=== PATIENT | female | born 1995 | race Caucasian/White ===

== ENCOUNTER → 2019-02-06 | Outpatient (REF) | payer SELFPAY | LOC: M LAB LCGH 12:05 | PROVIDERS: ATTEND Obstetrics & Gynecology | DX: Z12.4 Encounter for screening for malignant neoplasm of cervix (principal) ==

== ENCOUNTER → 2024-08-24 | Outpatient (REF) | payer OTHER | LOC: M SFHCWAGY 13:07 | PROVIDERS: ATTEND Obstetrics & Gynecology | DX: Z34.93 Encounter for supervision of normal pregnancy, unspecified, third trimester (principal); Z3A.36 36 weeks gestation of pregnancy ==

== ENCOUNTER 2024-09-15 07:34 | Inpatient (IN) | payer OTHER ==
[2024-09-15] VITALS (13 sets, daily range): BP systolic 88–123; BP diastolic 51–69
[~2024-09-15] VITALS: Ht 152.4 cm; Wt 65.7 kg
[2024-09-15] MEDS ORDERED: ANTA1CHW6 PO (09:23)
[2024-09-15] MEDS ORDERED: METHYLERGONOVINE MALEATE 0.2 MG/ML 1 ML VIAL IM PRN (09:45)
[2024-09-15] MEDS ORDERED: CARBOPROST TROMETHAMINE 250 MCG/ML AMP IM PRN (09:45)
[2024-09-15] MEDS ORDERED: LIDOCAINE 1% MDV 20 ML VIAL INFIL PRN (09:45)
[2024-09-15] MEDS ORDERED: TRANEXAMIC ACID INJection 1,000 MG in NS 100 ML IV PRN (09:45)
[2024-09-15 10:10] LABS: PLATELET COUNT, AUTOMATED 333 10^3/uL (150-450)
[2024-09-15] MEDS: miSOPROStol 50 MCG 1/2 TABLET PO SCH (10:27)
[2024-09-15 10:57] LABS: HIV 1&2 SCREEN NEGATIVE (NEGATIVE)
[2024-09-15 11:05] LABS: HEPATITIS C VIRUS ABY INDEX < 0.02 INDEX (<0.8)
[2024-09-15] MEDS: OXYTOCIN DRIP 30 UNITS in IV 1 EA IV SCH (20:42)
[2024-09-15] MEDS: LR 1,000 ML IV SCH (20:42)
[2024-09-16] VITALS (45 sets, daily range): BP systolic 82–181; BP diastolic 45–79; O2SAT 95
[2024-09-16] MEDS: LACTATED RINGER'S 1000 ML IV STA (01:49)
[2024-09-16] MEDS: ACETAMINOPHEN 325 MG TAB PO ONE (01:52)
[2024-09-16] MEDS ORDERED: LR 500 ML IV PRN (02:10)
[2024-09-16] MEDS ORDERED: ONDANSETRON 4MG 2ML VIAL IV PRN (02:10)
[2024-09-16] MEDS ORDERED: NALOXONE INJ 0.4 MG/1 ML VIAL IV PRN (02:10)
[2024-09-16] MEDS ORDERED: EPIDURAL/PCA KEYS XX PRN (02:10)
[2024-09-16] MEDS ORDERED: diphenhydrAMINE 50 MG/ML VIAL IV PRN (02:10)
[2024-09-16] MEDS ORDERED: FENTANYL 2 MCG/ML ROPIVACAINE 0.2% IN 0.9% NACL 100 ML IVBAG As Ordered ONE (02:17)
[2024-09-16] MEDS: FENTANYL/ROPIVACAINE/NACL BAG 100 ML EPIDURAL SCH (02:39)
[2024-09-16] MEDS ORDERED: IBUPROFEN 600 MG TAB PO PRN (14:55)
[2024-09-16] MEDS ORDERED: ACETAMINOPHEN 325 MG TAB PO PRN (14:55)
[2024-09-16] MEDS: ACETAMINOPHEN 500 MG TAB PO PRN (15:00)
[2024-09-16] MEDS: IBUPROFEN 800 MG TAB PO PRN (20:03)
[2024-09-17 05:52] VITALS: BP 96/60
== END 2024-09-17 14:40 | disposition home or self-care (01) | DRG 560 ==
LOC: M LDI 07:34 → M OBS 09-16 14:05
PROVIDERS: ADMIT Advanced Practice Midwife; ATTEND Obstetrics & Gynecology
PROC: 3E0P7GC Introduction of Other Therapeutic Substance into Female Reproductive, Via Natural or Artificial Opening (ICD-10-PCS; 2024-09-15)
PROC: 10E0XZZ Delivery of Products of Conception, External Approach (ICD-10-PCS; principal; 2024-09-16)
PROC: 10907ZC Drainage of Amniotic Fluid, Therapeutic from Products of Conception, Via Natural or Artificial Opening (ICD-10-PCS; 2024-09-16)
DX: O36.5930 Maternal care for other known or suspected poor fetal growth, third trimester, not applicable or unspecified (principal); Z37.0 Single live birth; Z3A.38 38 weeks gestation of pregnancy